=== PATIENT | male | born 1970 | race Caucasian/White ===

== ENCOUNTER 2023-07-25 13:23 | Emergency (ER) | payer BC, SELFPAY ==
[2023-07-25 13:42] VITALS: BP 126/82; PULSE 104; RESP 18; TEMP 37.2; O2SAT 94; BMI 28.1
--- NOTE | 2023-07-25 14:06 | XR_ITS ---
Patient: DASHAWN GAYTAN Facility:?[facility] Patient ID:?[id number] Site Patient ID:?[id number]. Site :?[id number] Study:?XRay-Chest Right 3V RIBS-07/25/2023 2:32:52 PM Ordering Physician:? Final Report: INDICATION: Chest pain. TECHNIQUE: Chest/right ribs, 4 views. COMPARISON: None. FINDINGS: Cardiovascular and mediastinum: Heart size and vasculature are normal in caliber and appearance. Lungs and pleural spaces: Lungs are clear. No sign of infiltrate or mass. No sign of pleural effusion. No pneumothorax. Bones and soft tissues: No significant findings. IMPRESSION: No acute or significant findings. Dictated by Min Groves MD @ 07/25/2023 2:43:10 PM Signed by:?Min Groves MD @07/25/2023 2:43:10 PM (Electronic Signature)
[2023-07-25] MEDS: ONDANSETRON ODT 4 MG TAB PO (14:31)
--- NOTE | 2023-07-25 14:44 | ED.GENADULT ---
HPI - General Adult General Date Seen: 07/25/23 Chief complaint: Allergic Reaction Stated complaint: Chest pain, dizzy post jiu-jitsu Time Seen by Provider: 07/25/23 13:37 Source: patient Mode of arrival: ambulatory Limitations: no limitations History of Present Illness HPI narrative: Patient is a 53-year-old male presenting for right-sided rib pain. Pain is about in the axillary region about ribs 3 or 4. He states this occurred last night after jiu-u where he was up against a very large person.States right after this he was having all this pain. He did have an appointment yesterday with his primary care provider to establish care. Was not having this pain at that time. States everything makes him sick other than Demerol. This includes all other NSAIDs and narcotics. States he can only take Demerol. Denies shortness of breath, weakness, headaches. Did have some nausea associated with it. Also states he is feeling a little bit dizzy. Describes the pain as sharp 20/10 pain. He admits to drinking 3 IPAs earlier today to help with the pain. Has not taking anything else for pain Related Data Home Medications Medication Instructions Recorded Confirmed albuterol sulfate 90 mcg/actuation inhalation 07/25/23 aerosol inhaler (Ventolin HFA) alprazolam 0.25 mg tablet 0.5 mg PO BID 07/25/23 07/25/23 dorzolamide 22.3 mg-timolol 6.8 ophthalmic (eye) 07/25/23 mg/mL eye drops fluticasone propionate 50 spray intranasal 07/25/23 mcg/actuation nasal spray,suspension latanoprost 0.005 % eye drops drp ophthalmic (eye) 07/25/23 lisinopril 20 mg tablet 20 mg PO DAILY 07/25/23 07/25/23 olanzapine 10 mg tablet 10 mg PO QPM 07/25/23 07/25/23 omeprazole 40 mg capsule,delayed 40 mg PO DAILY 07/25/23 07/25/23 release tiotropium bromide 18 mcg capsule 1 cap inhalation DAILY 07/25/23 07/25/23 with inhalation device (Spiriva with HandiHaler) Allergies Allergy/AdvReac Type Severity Reaction Status Date / Time codeine Allergy Unknown Verified 07/25/23 13:39 Review of Systems Narrative: Pertinent systems reviewed and were negative unless stated in HPI PFSH PFS Social History Smoking Status: Current every day smoker What tobacco products do you use: cigarettes Smoking packs per day: 1 Smoking cigarettes per day: 20.0 How often do you have a drink containing alcohol: monthly or less How many standard drinks containing alcohol do you have on a typical day: 1 or 2 AUDIT-C Alcohol total score: 1 Non-prescribed substance use: marijuana (any form) service: No Exam Narrative: Exam Narrative: Const: Well-nourished, Well-developed, in mild distress Eyes: PERRL, no conjunctival injection, and symmetrical lids HENT: Atraumatic external nose and ears. Moist mucous membranes. Neck: Symmetric, trachea midline, No thyromegaly. CVS: RRR, No murmurs or gallops. Peripheral pulses 2+ and equal in all extremities RESP: Unlabored respiratory effort. Clear to auscultation bilaterally. GI: Nontender/Nondistended, No rebound or guarding. MSK:Extremities w/o deformity, Normal Active ROM, tenderness to palpation right axilla region Skin: Warm, Dry. No rashes or lesions. Neuro: Normal Muscle tone, No focal neurological deficits. Psych: Awake, Alert, & Oriented x3. Appropriate mood and affect. Const: Vital Signs, click to edit/add: Vital Signs - 24 hr 07/25/23 13:42 Temperature 98.9 F Pulse Rate [Pulse Oximeter] 104 H Respiratory Rate 18 Blood Pressure [Ri ght Upper Arm] 126/82 Pulse Oximetry 94 Oxygen Delivery Me thod Room Air Course Vital Signs Vital signs: Initial Vital Signs Temperature 98.9 F 07/25/23 13:42 Temperature Source Temporal Artery Scan 07/25/23 13:42 Pulse Rate 104 H 07/25/23 13:42 Pulse Rhythm Regular 07/25/23 13:42 Respiratory Rate 18 07/25/23 13:42 Blood Pressure 126/82 07/25/23 13:42 Blood Pressure Mean 96 07/25/23 13:42 Pulse Oximetry 94 07/25/23 13:42 Oxygen Delivery Method Room Air 07/25/23 13:42 Vital Signs Temperature 98.9 F 07/25/23 13:42 Pulse Rate 104 H 07/25/23 13:42 Respiratory Rate 18 07/25/23 13:42 Blood Pressure 126/82 07/25/23 13:42 Pulse Oximetry 94 07/25/23 13:42 Oxygen Delivery Method Room Air 07/25/23 13:42 Temperature 98.9 F 07/25/23 13:42 Pulse Rate 104 H 07/25/23 13:42 Respiratory Rate 18 07/25/23 13:42 Blood Pressure 126/82 07/25/23 13:42 Pulse Oximetry 94 07/25/23 13:42 Oxygen Delivery Method Room Air 07/25/23 13:42 Medications Administered Medications: Discontinued Medications Generic Name Dose Route Start Last Admin Trade Name Kandi PRN Reason Stop Dose Admin Ketorolac Tromethamine 30 mg 07/25/23 14:06 07/25/23 14:32 Ketorolac 30 Mg/Ml Inj IM 07/25/23 14:07 Not Given ONCE ONE Ondansetron HCl 4 mg 07/25/23 14:23 07/25/23 14:31 Ondansetron Odt 4 Mg Tab PO 07/25/23 14:24 4 mg ONCE ONE Administration Medical Decision Making [facility] Narrative Medical decision making narrative: Patient is a 53-year-old male presenting to emergency department for right axillary pain. EKG was done in triage which shows sinus tachycardia of 108 beats per minute, normal intervals, normal axis, no ST or T-wave abnormalities. All this pain appears to be musculoskeletal in nature. He is given Zofran for his nausea. I offered him a Toradol injection but he refused saying that it causes him nausea and only thing he can take his Demerol. Is refusing anything else at this time and became very angry when was not given the Demerol. He started insulting nursing staff and myself. He then got up out of bed without issue and changed and left. I do not feel comfortable giving this patient narcotics as he was showing pain med seeking behavior with admit the sane the only medicine that works is Demerol and refusing all mother also pain medications. He left before further workup could be done. I did do an x-ray which showed no acute findings. Imaging Data Chest x-ray: Attestation: I have reviewed the pertinent imaging results. Radiologist's impression: No acute or significant findings. Dictated by Min Groves MD @ 07/25/2023 2:43:10 PM ECG Data Attestation: I personally reviewed and interpreted this ECG as follows: Discharge Plan Discharge Clinical Impression: Chest pain, musculoskeletal Patient Disposition: Elopement Condition: Stable Instructions: Chest Wall Pain (ED) Prescriptions: No Action latanoprost 0.005 % drops ophthalmic (eye) lisinopril 20 mg tablet 20 mg PO DAILY olanzapine 10 mg tablet 10 mg PO QPM omeprazole 40 mg capsule,delayed release(DR/EC) 40 mg PO DAILY alprazolam 0.25 mg tablet 0.5 mg PO BID dorzolamide-timolol 22.3-6.8 mg/mL drops ophthalmic (eye) albuterol sulfate [Ventolin HFA] 90 mcg/actuation HFA aerosol inhaler inhalation fluticasone propionate 50 mcg/actuation spray,suspension INTRANASAL tiotropium bromide [Spiriva with HandiHaler] 18 mcg capsule, w/inhalation device 1 cap inhalation DAILY Follow Up/Referrals: Provider,Not a Local [Primary Care Provider] -
== END 2023-07-25 15:05 | disposition left against medical advice (07) ==
PROVIDERS: Emergency Provider Student in an Organized Health Care Education/Training Program
DX: R07.89 Other chest pain (principal); Y93.75 Activity, martial arts
CPT/HCPCS: 71101; 99282; 99284; A9270

== ENCOUNTER 2024-12-31 09:59 | Outpatient (CLI) | payer BC, SELFPAY | END 2024-12-31 10:00 | disposition home or self-care (01) | LOC: FRMREF 10:02 | DX: R07.9 Chest pain, unspecified (principal) | CPT/HCPCS: 85379 ==